=== PATIENT | female | born 1975 | race Two or more races ===

== ENCOUNTER 2021-08-18 12:11 | Emergency (ER) | payer OTHER ==
[~2021-08-18] VITALS: Ht 144.8 cm; Wt 114.6 kg
[2021-08-18 13:33] VITALS: BP 151/89
--- NOTE | 2021-08-18 13:39 | PHYS DOC ---
General Adult EDM: Chief Complaint: ANKLE PROBLEM HPI: HPI: Patient is a 46 year old female who presents the ED today complaining of 8 out of 10 left medial ankle pain, symptoms have been going on since this morning. Patient describes the pain as sharp and constant worse on ambulation. Denies any injuries. Denies anything relieving the pain. Review of Systems: Review of Systems: Constitutional: Denies fever or chills. Musculoskeletal: Reports left ankle pain Integument: Denies rash. [] Neurologic: Denies headache, focal weakness or sensory changes. [] Psychiatric: Denies depression or anxiety. [] Heart Score: C/O Chest Pain: N/A Risk Factors: Risk Factors: DM, Current or recent (<one month) smoker, HTN, HLP, family history of CAD, obesity. Risk Scores: Score 0 - 3: 2.5% MACE over next 6 weeks - Discharge Home Score 4 - 6: 20.3% MACE over next 6 weeks - Admit for Clinical Observation Score 7 - 10: 72.7% MACE over next 6 weeks - Early Invasive Strategies Allergies: Allergies: Allergies Coded Allergies Type Severity Reaction Last Updated Verified No Known Drug Allergies 08/18/21 No Physical Exam: PE: Constitutional: Well developed, well nourished, no acute distress, non-toxic appearance. [] Skin: Warm, dry, no erythema, no rash. [] Back: No tenderness, no CVA tenderness. [] Extremities: Left ankle with no obvious deformity, trace edema noted on the left medial ankle. Tenderness on palpation of the left medial ankle. Full range of motion to the left ankle foot and toes. +2 left pedal pulse. Cap refill less than 2 seconds to left toes. Neurologic: Alert and oriented X 3, normal motor function, normal sensory function, no focal deficits noted. [] Psychologic: Affect normal, judgement normal, mood normal. [] EKG: EKG: [] Radiology/Procedures: Radiology/Procedures: []PROCEDURE: ANKLE LEFT 3V EXAM: 3 views of the left ankle DATE: 08/18/2021 1:38 PM INDICATION: Reason: pain / Spl. Instructions: / History: COMPARISON: No Prior FINDINGS: No acute fracture or dislocation. Ankle mortise is congruent. Talar dome is intact. Joint spaces are preserved without significant degenerative/proliferative change. Diffuse soft tissue swelling about the left ankle. Small plantar calcaneal enthesophyte. IMPRESSION: 1. Diffuse soft tissue swelling about the left ankle without acute fracture or dislocation. Electronically signed by: Yonis Jenkins MD (08/18/2021 1:49 PM) [id number] DICTATED and SIGNED BY: YONIS JENKINS MD DATE: 08/18/21 [id number] 0 Course & Med Decision Making: Course & Med Decision Making Pertinent Labs and Imaging studies reviewed. (See chart for details) This is a 46-year-old female patient presented to the ED today with left ankle pain that began this morning. No known injuries. Left ankle x-rays interpreted by radiologist were noted for soft tissue swelling otherwise no acute findings. Mohan wrap and Aircast applied to the left ankle by the ED RN, neurovascular exam done by the RN is normal. Ice elevation encouraged. Provided orthopedic doctor for follow-up. Prescription for naproxen and Medrol Dosepak provided for home use Dragon Disclaimer: Dragon Disclaimer: This electronic medical record was generated, in whole or in part, using a voice recognition dictation system. Departure Departure Impression: Primary Impression: Left ankle pain Qualified Codes: M25.572 - Pain in left ankle and joints of left foot Disposition: HOME / SELF CARE / HOMELESS Condition: STABLE Referrals: NO PCP (PCP) CLARIBEL WINN II, MD follow up in one week Patient Instructions: Ankle Pain Additional Instructions: You were evaluated in the emergency room for left ankle pain, left ankle x-rays are negative for any acute findings. You were noted to have swelling on the ankle. We encourage you to keep the left ankle wrapped in the Mohan bandage and wear the Aircast provided as tolerated for 1-2 weeks. Try to ice and elevate the extremity. Follow-up with the provided orthopedic doctor in 1 to 2 weeks. Take the prescribed medications as needed. Scripts Naproxen (NAPROXEN) 500 Mg Tablet 1 TAB PO BID for pain, #14 TAB 0 Refills Prov: MARIVEL MADERA [employer] DATA [employer]CTOR 08/18/21 Methylprednisolone (MEDROL) 4 Mg Tab.ds.pk 1 PKG PO UD, #1 PKG Prov: MARIVEL MADERA [employer] DATA ABSTRACTOR 08/18/21 MARIVEL MADERA [employer] DATA AB[employer]CTOR Aug 18, 2021 13:39
--- NOTE | 2021-08-18 13:51 | RAD ---
EXAM: 3 views of the left ankle DATE: 08/18/2021 1:38 PM INDICATION: Reason: pain / Spl. Instructions: / History: COMPARISON: No Prior FINDINGS: No acute fracture or dislocation. Ankle mortise is congruent. Talar dome is intact. Joint spaces are preserved without significant degenerative/proliferative change. Diffuse soft tissue swelling about t he left ankle. Small plantar calcaneal enthesophyte. IMPRESSION: 1. Diffuse soft tissue swelling about the left ankle without acute fracture or dislocation. Electronically signed by: Yonis Jenkins MD (08/18/2021 1:49 PM) [id number]
[2021-08-18] MEDS ORDERED: NAPR-514 PO (13:58)
[2021-08-18] MEDS ORDERED: METH4TAB2 PO (13:58)
== END 2021-08-18 15:15 | disposition home or self-care (01) ==
LOC: ER 12:11
DX: M25.572 Pain in left ankle and joints of left foot (principal)
CPT/HCPCS: 29515; 73610; 99283; L4350; A6450